=== PATIENT | male | born 1940 | race Caucasian/White ===

== ENCOUNTER 2016-07-01 14:19 | Outpatient (CLI) | payer OTHER ==
--- NOTE | 2016-07-01 16:13 | DIAGNOSTIC IMAGING REPORT ---
PROCEDURE: XR CHEST 2 VIEW INDICATION: HYPONATREMIA TECHNIQUE: PA and lateral views. COMPARISON: Chest 02/28/2014 and 12/16/2014 FINDINGS: Lungs are clear. Heart and mediastinum are normal. Mild degenerative changes of the thoracic spine. Thorax is otherwise normal. IMPRESSION: 1. Negative chest.
== END 2016-07-01 23:00 ==
LOC: XR SRH 14:19
DX: E87.1 Hypo-osmolality and hyponatremia (principal)